=== PATIENT | female | born 2000 | race Hispanic/Latino ===

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

== ENCOUNTER → 2023-04-17 | Outpatient (CLI) | payer BC ==
[2023-04-17 11:56] LABS: INR < 0.93 (0.85-1.15); PROTHROMBIN TIME 10.3 SEC (9.6-11.6)
[2023-04-17 11:57] LABS: PARTIAL THROMBOPLASTIN TIME 31.6 SEC (26.3-35.5)
== END | disposition home or self-care (01) ==
LOC: RAH 09:23
PROVIDERS: ATTEND Student in an Organized Health Care Education/Training Program
DX: E04.1 Nontoxic single thyroid nodule (principal); Z79.01 Long term (current) use of anticoagulants
CPT/HCPCS: 10005; 36415; 76942; 85610; 85730; 88108; 88305

== ENCOUNTER 2023-09-15 16:56 | Emergency (ER) | payer BC | END 2023-09-15 18:47 | disposition left against medical advice (07) | LOC: EDH 16:56 | DX: N28.9 Disorder of kidney and ureter, unspecified (principal); Z53.21 Procedure and treatment not carried out due to patient leaving prior to being seen by health care provider ==